=== PATIENT | male | born 1990 | race Two or more races ===

== ENCOUNTER 2020-01-26 16:24 | Emergency (ER) | payer SELFPAY ==
[~2020-01-26] VITALS: Ht 170.2 cm; Wt 72.7 kg
[2020-01-26 16:55] VITALS: BP 138/85
--- NOTE | 2020-01-26 16:57 | PHYS DOC ---
Past Medical History Past Medical History: No Pertinent History Past Surgical History: No Surgical History Smoking Status: Never Smoker Alcohol Use: Rarely Drug Use: None General Adult EDM: Chief Complaint: FEVER HPI: HPI: Patient is a 29 year old Latvian male who presented to ER today for evaluation of cough, fever, chills, sore throat for 3 days. Cough is nonproductive. Patient denies any abdominal pain, no nausea vomiting. Patient complained of chest pain whenever he coughs. Patient was tested positive for COVID-19 yesterday. Review of Systems: Review of Systems: Constitutional: Positive for cough and fever and chill Eyes: Denies change in visual acuity. [] HENT: Positive for nasal congestion and sore throat Respiratory: Positive for cough, NO SHORTNESS OF AIR. Cardiovascular: Denies chest pain or edema. [] GI: Denies abdominal pain, nausea, vomiting, bloody stools or diarrhea. [] : Denies dysuria. [] Musculoskeletal: Denies back pain or joint pain. [] Integument: Denies rash. [] Neurologic: Denies headache, focal weakness or sensory changes. [] Endocrine: Denies polyuria or polydipsia. [] Lymphatic: Denies swollen glands. [] Psychiatric: Denies depression or anxiety. [] Heart Score: Risk Factors: Risk Factors: DM, Current or recent (<one month) smoker, HTN, HLP, family history of CAD, obesity. Risk Scores: Score 0 - 3: 2.5% MACE over next 6 weeks - Discharge Home Score 4 - 6: 20.3% MACE over next 6 weeks - Admit for Clinical Observation Score 7 - 10: 72.7% MACE over next 6 weeks - Early Invasive Strategies Physical Exam: PE: Constitutional: Well developed, well nourished, no acute distress, non-toxic appearance. [] HENT: Normocephalic, atraumatic, bilateral external ears normal, oropharynx moist, ERYTHEMA, NO EXUDATION, no oral exudates, nose normal. [] Eyes: PERRLA, EOMI, conjunctiva normal, no discharge. [] Neck: Normal range of motion, no tenderness, supple, no stridor. [] Cardiovascular:Heart rate regular rhythm, no murmur [] Lungs & Thorax: Bilateral breath sounds clear to auscultation [] Abdomen: Bowel sounds normal, soft, no tenderness, no masses, no pulsatile masses. [] Skin: Warm, dry, no erythema, no rash. [] Back: No tenderness, no CVA tenderness. [] Extremities: No tenderness, no cyanosis, no clubbing, ROM intact, no edema. [] Neurologic: Alert and oriented X 3, normal motor function, normal sensory function, no focal deficits noted. [] Psychologic: Affect normal, judgement normal, mood normal. [] EKG: EKG: [] Radiology/Procedures: Radiology/Procedures: [][facility] [address] [place] [address] IMAGING REPORT Signed PATIENT: ROXANN RIOS AACCOUNT: [id number] : 1990 LOCATION: ER AGE: 29 SEX: M EXAM STATUS: REG ER ORD. PHYSICIAN: SCOT SERVIN DO REASON: COUGH, FEVER PROCEDURE: CHEST AP ONLY CHEST AP ONLY History: Reason: COUGH, FEVER / Spl. Instructions: / History: Comparison: None. Findings: No consolidation or pleural effusion. Normal heart size. No pneumothorax. Impression: 1. No acute cardiopulmonary process. Electronically signed by: Art Brand DO (01/26/2020 5:15 PM) [id number] DICTATED and SIGNED BY: ART BRAND DO DATE: 01/26/20 1715 Course & Med Decision Making: Course & Med Decision Making Pertinent Labs and Imaging studies reviewed. (See chart for details) Patient is a 29-year-old male who was test positive for COVID-19 yesterday, presented with cough, chest pain when he coughed. Patient oxygen saturation is normal, chest x-ray is normal as well. We will discharge him home, instructed him to quarantine at home for 14 days. Dragon Disclaimer: Wen Disclaimer: This electronic medical record was generated, in whole or in part, using a voice recognition dictation system. Departure Departure Impression: Primary Impression: COVID-19 virus infection Disposition: HOME, SELF-CARE Condition: STABLE Referrals: NO PCP (PCP) Patient Instructions: Viral Syndrome Additional Instructions: Definicin Se le realiz la prueba de deteccin del COVID-19 o se le diagnostic dicha enfermedad. Es tiarra infeccin ocasionada por un nuevo tipo de coronavirus. En la mayora de los casos, el COVID-19 provoca sntomas similares a los del resfriado. En algunas personas, puede ocasionar sntomas ms graves, josé problemas respiratorios. No existe un tratamiento para el virus COVID-19. El cuerpo elimina la infeccin con el tiempo. El cuidado personal ayuda a aliviar el malestar. Pasos que debe seguir 1. Cuidados personales Descanse cuando sea necesario. Los hbitos saludables pueden ayudarlo a sentirse mejor. Algunas medidas para lograr cambios incluyen lo siguiente: - Elija alimentos saludables, josé frutas y verduras. Melody abundante cantidad de agua regi todo el da. - Duerma jenniffer por la noche. - Si fuma, intente no hacerlo. [place] ayudar a mejorar la respiracin. - Evite el alcohol. 2. Mantenga sanos a los dems El virus puede contagiarse a otras personas. Cada vez que estornuda o tose, se liberan gotitas. Las gotitas pueden entrar en la boca, la nariz o los ojos de las personas que se encuentran cerca de usted y ocasionar la infeccin. Para reducir las probabilidades de contagiar el virus COVID-19 a otros, tenga en cuenta lo siguiente: - Qudese en casa el tiempo que el mdico se lo indique. Es posible que deba quedarse en casa hasta que la enfermedad desaparezca. Salga nicamente para recibir atencin mdica o en miguel angel de urgencia. - Evite las reas pblicas, los eventos o el transporte pblico. No reanude las actividades laborales o escolares hasta que el mdico lo autorice. - Llame previamente si necesita asistir a un centro mdico. Avise que es posible que haya contrado COVID-19. [place] ayudar a que le indiquen adonde debe dirigirse. Prakash pueden pedirle que use tiarra mscara facial cuando vaya al consultorio. Si llama a los servicios de asistencia mdica de urgencias, avseles que es posible que haya contrado COVID-19. Mientras est en casa: - Evite el contacto directo con otras personas. Mantngase a tiarra distancia aproximada de 2 metros. Si es posible, pasen la mayor parte del tiempo en castro separadas. - Use tiarra mscara facial si estar en contacto directo con otras personas, por ejemplo, si compartir tiarra habitacin o un vehculo. - Pida a alguien que limpie las superficies comunes de la casa. Limpie picaportes, mesadas y lavamanos con limpiadores domsticos todos los stuart. - Al toser o estornudar, cbrase con un pauelo de papel. Despus de usarlo, deschelo de inmediato. Si no tiene un pauelo de papel, tosa o estornude en el pliegue del codo. - Lvese las cynthia con frecuencia. Lvese las cynthia despus de estornudar o toser. Lvese con agua y jabn regi, al menos, 20 segundos. Si no dispone de agua y jabn, use un limpiador de cynthia a base de alcohol. - No cocine para otros. Evite compartir objetos personales, josé tenedores, cucharas o cepillos de dientes. - Mientras est enfermo, evite el contacto directo con las mascotas. No hay indicios de si el virus se transmite a las mascotas. Esta es tiarra medida de seguridad que debe tenerse en cuenta hasta que se sepa ms acerca de suni virus. El aislamiento puede ser frustrante. La interaccin social puede ayudar. Mantngase en contacto con amigos y familiares por telfono u otros medios tecnolgicos. Puede interactuar con otras personas en el hogar, emelyn mantenga tiarra distancia green de aproximadamente 2 metros. Seguimiento Las pruebas para confirmar la presencia del COVID-19 pueden demorar algunos stuart. Es posible que deba seguir los pasos mencionados anteriormente hasta que estn los resultados de las pruebas. Lo llamarn del consultorio mdico para saber si eubanks habido algn cambio en rivas juan. Tambin le avisarn cuando pueda volver a estar cerca de otras personas. Problemas a los que debe estar atento Comunquese con el mdico si no se recupera segn lo previsto o si tiene problemas josé los siguientes: - Dificultad para respirar - Dolor de pecho - Empeoramiento de los sntomas Si jacqui que tiene tiarra urgencia, llame a los servicios de asistencia mdica de urgencias de inmediato. As taken from [facility] Justicifation of Admission Dx: Justifications for Admission: Justification of Admission Dx: N/A SCOT SERVIN DO Jan 26, 2020 16:57
--- NOTE | 2020-01-26 17:17 | RAD ---
CHEST AP ONLY History: Reason: COUGH, FEVER / Spl. Instructions: / History: Comparison: None. Findings: No consolidation or pleural effusion. Normal heart size. No pneumothorax. Impression: 1. No acute cardiopulmonary process. Electronically signed by: Art Brand DO (01/26/2020 5:15 PM) [id number]
== END 2020-01-26 18:12 | disposition home or self-care (01) ==
LOC: ER 16:24
DX: U07.1 COVID-19 (principal); J02.9 Acute pharyngitis, unspecified; R50.9 Fever, unspecified; R05 Cough
CPT/HCPCS: 71045; 87070; 87880; 99284